=== PATIENT | female | born 1970 | race Caucasian/White ===

== ENCOUNTER 2019-08-21 08:31 | Outpatient (CLI) | payer OTHER ==
[~2019-08-21 08:31] MED LIST: DOLOGESIC CAPSU1 CAP PO
== END 2019-08-21 15:00 | disposition home or self-care (01) ==
LOC: LAB 08:31
DX: R79.1 Abnormal coagulation profile (principal); Z01.812 Encounter for preprocedural laboratory examination

== ENCOUNTER 2019-08-21 08:54 | Outpatient (CLI) | payer OTHER | END 2019-08-21 09:06 | disposition home or self-care (01) | LOC: RAD 08:54 | DX: D50.8 Other iron deficiency anemias (principal); N64.4 Mastodynia; R87.810 Cervical high risk human papillomavirus (HPV) DNA test positive; N92.6 Irregular menstruation, unspecified; D27.0 Benign neoplasm of right ovary; D25.1 Intramural leiomyoma of uterus ==

== ENCOUNTER 2019-08-22 12:00 | Inpatient (IN) | payer OTHER ==
[~2019-08-22] VITALS: Ht 157.5 cm; Wt 70.3 kg
[2019-08-31] MEDS ORDERED: PEPCID AC20 MG PO (09:01)
[2019-08-31] MEDS ORDERED: KETO10TA2 PO (09:01)
[2019-08-31] MEDS ORDERED: ULTRACET PO (09:03)
[2019-08-31] MEDS ORDERED: COLACE100 MG PO (09:04)
[2019-08-31] MEDS ORDERED: SIMETHICONE125 M1 PO (09:04)
[2019-08-31] MEDS ORDERED: CIPRO500 MG PO (09:05)
== END 2019-08-31 11:37 | disposition home or self-care (01) | DRG 742 ==
LOC: ADM 12:00 → OB/GYN 08-29 05:45 → O/R 08-29 05:45 → SURH 08-29 07:00 → ADM 08-29 12:00 → EDSTATUS 08-29 12:00 → OB/GYN 08-29 14:12
PROVIDERS: Surgery; Urology; ADMIT Obstetrics & Gynecology; ATTEND Obstetrics & Gynecology
PROC: 0UB50ZZ Excision of Right Fallopian Tube, Open Approach (ICD-10-PCS; 2019-08-29)
PROC: 0DNW0ZZ Release Peritoneum, Open Approach (ICD-10-PCS; 2019-08-29)
PROC: 0USG0ZZ Reposition Vagina, Open Approach (ICD-10-PCS; 2019-08-29)
PROC: 0DQN0ZZ Repair Sigmoid Colon, Open Approach (ICD-10-PCS; 2019-08-29)
PROC: 0UT90ZZ Resection of Uterus, Open Approach (ICD-10-PCS; principal; 2019-08-29 07:00)
PROC: 0UJD4ZZ Inspection of Uterus and Cervix, Percutaneous Endoscopic Approach (ICD-10-PCS; 2019-08-29 07:00)
PROC: 0UB00ZZ Excision of Right Ovary, Open Approach (ICD-10-PCS; 2019-08-29 07:00)
DX: N80.0 Endometriosis of uterus (principal); K91.72 Accidental puncture and laceration of a digestive system organ or structure during other procedure; D25.1 Intramural leiomyoma of uterus; D25.2 Subserosal leiomyoma of uterus; N73.6 Female pelvic peritoneal adhesions (postinfective); Y92.234 Operating room of hospital as the place of occurrence of the external cause; Y65.8 Other specified misadventures during surgical and medical care; D27.0 Benign neoplasm of right ovary